=== PATIENT | male | born 1980 | race Caucasian/White ===

== ENCOUNTER 2019-07-12 16:00 | Emergency (ER) | payer MEDICAID, OTHER ==
[~2019-07-12] VITALS: Ht 167.6 cm; Wt 64.0 kg
[2019-07-12] MEDS ORDERED: KETOROLAC 30MG/ML VIAL IV ONE (16:30)
[2019-07-12] MEDS ORDERED: ASPIRIN 81MG TABLET PO ONE (16:30)
[2019-07-12 16:40] LABS: BASOPHILS % 0.6 % (0.0-2.0); EOSINOPHILS % 2.4 % (0.0-5.0); HEMATOCRIT. 41.4 % (42.0-52.0); HEMOGLOBIN. 14.3 g/dL (14.0-18.0); LYMPHOCYTES % 44.3 % (20.0-50.0); MEAN CORPUSCULAR HEMOGLOBIN 32.8 pg (28.0-32.0); MEAN CORPUSCULAR VOLUME 95.3 fL (80.0-94.0); NEUTROPHILS % 44.7 % (40.0-76.0); PLATELET 206 x1000/uL (130-400); RED BLOOD CELL COUNT 4.35 mill/uL (4.7-6.1); RED CELL DISTRIBUTION WIDTH 12.8 % (11.6-14.6)
[2019-07-12 16:45] LABS: CHLORIDE 105 mEq/L (98-107)
[2019-07-12] MEDS ORDERED: KETOROLAC 60MG/2ML VIAL IM ONE (18:30)
[2019-07-12 18:38] VITALS: BP 124/79
== END 2019-07-12 18:43 | disposition home or self-care (01) ==
LOC: ER 16:00
DX: M94.0 Chondrocostal junction syndrome [Tietze] (principal); E11.9 Type 2 diabetes mellitus without complications
CPT/HCPCS: 36415; 71045; 80053; 83880; 84484; 85025; 93005; 96372; 99284; J1885; Z7610